=== PATIENT | female | born 1985 ===

== ENCOUNTER 2019-06-07 09:40 | Inpatient (IN) | payer OTHER ==
--- NOTE | 2019-06-07 11:10 | HP ---
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: Alzheimer's, CVA, Dementia, Migraine, Multiple Sclerosis, Peripheral Neuropathy, Parkinson's, Seizure, Syncope, TIA, Vertigo, Other Cardiovascular: No: AFIB, Aneurysm, Aortic Insufficiency, Aortic Stenosis, CAD, CHF, Deep Vein Thrombosis, HTN, Hyperlipdemia, [place], Mitral Insufficiency, Mitral Stenosis, Murmur, Pulmonary Hypertension, Other Pulmonary: No: Asthma, Bronchitis, Cancer, COPD, O2 Dependent, Pneumonia, Previously Intubated, Pulmonary Embolus, Pulmonary Fibrosis, Sleep Apnea, Other Gastrointestinal: No: Ascites, Cancer, Constipation, Crohn's Disease, Diverticulitis, Diverticulosis, Esophageal Varices, Gastritis, GERD, GI Bleed, Hemorrhoids, Hiatal Hernia, Inflamatory Bowel Disease, Irritable Bowel Disease, Pancreatitis, Peptic Ulcer Disease, Ulcerative Colitis, Other Hepatobiliary: No: Cirrhosis, Cholelithiasis, Cholecystitis, Choledocholithiasis , Hepatitis A, Hepatitis B, Hepatitis C, Other Renal/: No: Renal Failure, Renal Inusuff, BPH, Cancer, Hematuria, Hemodialysis , Neurogenic Bladder, Renal Calculi, UTI, Other Reproductive: No: Ectopic , Endometriosis, Fibroids, PID, Polycystic Ovary Syndrome, Postmenopausal, Other ...: 1 Heme/Onc: No: Anemia, B12 Deficiency, Bleeding Disorder, Cancer, Current Chemotherapy, Current Radiation Therapy, Hemochromatosis, Hypercoaguable State, Myeloproliferative Synd, Sickle Cell Disease, Sickle Cell Trait, Thrombocytopenia, Other Infectious Disease: No: AIDS, C-Diff, Herpes Zoster, HIV, MRSA, STD's, Tuberculosis, VREF, Other Psych: No: Addictions, Anxiety, Bipolar, Depression, Panic, Psychosis, Schizophrenia, Other Musculoskeletal: No: Bursitis, Chronic low back pain, Hemiparesis, Hemiplegia, Osteoarthritis, Paraplegia, Other Rheumatology: No: Fibromyalgia, Gout, Lupus, Rheumatoid Arthritis, Sarcoidosis, Vasculitis, Other ENT: No: Allergic Rhinitis, Sinusitis, Other Endocrine: No: [place]'s Disease, Uli's Disease, Diabetes Insipidus, Diabetes Mellitus, Hyperparathyroidism, Hyperthyroidism, Hypothyroidism, Osteopenia, SIADH, Other Dermatology: No: Basal Cell, Cellulitis, Eczema, Melanoma, Psoriasis, Squamous Cell, Other - Past Surgical History Past Surgical History: Yes: None Hx Myomectomy: No Hx Transabdominal Cerclage: No - Smoking History Smoking history: Former smoker Have you smoked in the past 12 months: Yes Aproximately how many cigarettes per day: 0.5 (pack) - Alcohol/Substance Use Hx Alcohol Use: No History of Substance Use: reports: None - Social History History of Recent Travel: No Home Medications - Allergies Allergies/Adverse Reactions: Allergies Allergy/AdvReac Type Severity Reaction Status Date / Time No Known Allergies Allergy Verified 06/07/19 10:57 - Home Medications Home Medications: Ambulatory Orders Ferrous Sulfate [Feosol] 325 mg PO BID 06/07/19 Vitamins (Sjr) - 1 tab PO DAILY 06/07/19 Valacyclovir HCl [Valtrex -] 500 mg PO DAILY 06/07/19 Family Medical History Family History: Unremarkable Review of Systems Findings/Remarks: LOF - Review of Systems Constitutional: reports: No Symptoms Eyes: reports: No Symptoms HENT: reports: No Symptoms Neck: reports: No Symptoms Cardiovascular: reports: No Symptoms Respiratory: reports: No Symptoms Gastrointestinal: reports: No Symptoms Genitourinary: reports: No Symptoms Breasts: reports: No Symptoms Reported Musculoskeletal: reports: No Symptoms Integumentary: reports: No Symptoms Neurological: reports: No Symptoms Endocrine: reports: No Symptoms Hematology/Lymphatic: reports: No Symptoms Psychiatric: reports: No Symptoms Physical Exam - Maternity Vital Signs: as documented by nursing Constitutional: Yes: Well Nourished HENT: Yes: Atraumatic Neck: Yes: Supple Cardiovascular: Yes: Regular Rate and Rhythm Breast(s): Yes: Other - Abdominal Exam/OB Number of Fetuses: Single Presentation: Vertex (bedside sono: cephalic, AMAIRANI 12cm, +FM) Contractions: Yes Regularity: Irritability Intensity: Unaware Monitor Mode: External Heart Rate (range): 145 Category: I Accelerations: Uniform Decelerations: None - Vaginal Exam/OB Vaginal Bleediing: No Speculum Exam: Yes (no lesions and grossly ruptured) Dilatation (cm): 0.5 Effacement (%): 20 Amniotic Membrane Status: Ruptured Nitrazine Test: Positive Amniotic Fluid: Yes: Clear Presentation: Vertex/Position Station: -3 - Physical Exam Musculoskeletal: Yes: WNL Extremities: Yes: WNL Edema: Yes Edema: LLE: Trace, RLE: Trace Integumentary: Yes: WNL Deep Tendon Reflex Grade: Normal +2 ...Motor Strength: WNL Psychiatric: Yes: Alert, Oriented Imaging - Results Ultrasound: Report Reviewed Assessment/Plan 34 y/o P0 @ 39.6 wks, PROM not in active labor, reassuring status. 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 Patient was counseled regarding PROM and induction of labor. All questions answered and informed consent obtained. -Admit -labs -Continuous monitoring -IOL with PO misoprostol protocol
[2019-06-07 11:15] VITALS: BMI 28.5
[2019-06-07] MEDS: ELECTROLYTE-148 SOLN 1,000 ML IV SCH (11:36)
[2019-06-07 11:48] LABS: BASO % 0.2 % (0-2.0); EOS % 0.3 % (0-4.5); HEMATOCRIT 30.8 % (32.4-45.2); HEMOGLOBIN 10.7 GM/dL (10.7-15.3); LYMPH % 14.6 % (8-40); MCH 33.5 pg (25.7-33.7); MCHC 34.6 g/dl (32.0-36.0); MEAN CELL VOLUME 96.8 fl (80-96); MEAN PLT VOLUME 7.5 fl (7.5-11.1); MONO % 4.9 % (3.8-10.2); PLATELET COUNT 302 K/MM3 (134-434); RBC 3.18 M/mm3 (3.60-5.2); RDW 13.5 % (11.6-15.6); WHITE BLOOD COUNT 10.2 K/mm3 (4.0-10.0)
[2019-06-07 11:53] LABS: BLOOD UREA NITROGEN 6.7 mg/dL (7-18); CALCIUM 9.3 mg/dL (8.5-10.1); CREATININE 0.6 mg/dL (0.55-1.3); POTASSIUM 4.2 mmol/L (3.5-5.1)
[2019-06-07 12:12] LABS: INR 0.86 (0.83-1.09); PROTHROMBIN TIME (PATIENT) 10.1 SEC (9.7-13.0)
[2019-06-07 12:14] LABS: ACTIVATED PTT 22.6 SECONDS (25.2-36.5)
[2019-06-07] MEDS: MISOPROSTOL 100 MCG TABLET PO SCH ×3 (12:37→21:15)
[2019-06-08] MEDS ORDERED: BUTORPHANOL TARTRATE 1 MG/ML VIAL ONE ×2 (00:04→01:45)
[2019-06-08] MEDS ORDERED: BUTORPHANOL TARTRATE 2 MG/ML VIAL IVPB ONE ×3 (00:30→02:15)
[2019-06-08] MEDS ORDERED: PROMETHAZINE HCL 25 MG/1 ML VIAL ONE (01:45)
[2019-06-08] MEDS ORDERED: FENTANYL/BUPIVACAINE/NS/PF - PCEA - 50 ML DISP.SYRIN EP ONE ×3 (06:00→13:17)
[2019-06-08] MEDS ORDERED: BUPIVACAINE HCL/PF 2.5 MG/ML - 30 ML VIAL IJ ONE (06:07)
[2019-06-08] MEDS ORDERED: LIDO 2%/EPI 1:200000 PRESRVFRE (20 ML SDVIAL) ONE ×2 (06:07→16:26)
--- NOTE | 2019-06-08 06:11 | PN ---
Ante-Partal Exam - Subjective Subjective: Patient evaluated for pain and progression of induction Vital Signs: Vital Signs Temperature 98.3 F 06/08/19 05:00 Pulse Rate 68 06/08/19 05:00 Respiratory Rate 20 06/08/19 05:00 Blood Pressure 120/76 06/08/19 05:00 O2 Sat by Pulse Oximetry (%) Bleeding: No Headache: No Visual changes: No Right upper quadrant pain: No - Contractions Contractions: Yes Regularity: Regular Intensity: Mod/Strong Monitor Mode: External - Exam during Labor Heart Rate: 145 Variability: Minimal (episodes), Moderate Category: II (reassuring) Monitor Accelerations: Absent Monitor Decelerations: None Exam: Vaginal Dilatation (cm): 3 Effacement (%): 80 Amniotic Membrane Status: Ruptured Amniotic Fluid: Clear Presentation: Vertex Station: -2 - Assessment/Plan Assessment/Plan: 34 y/o G1 @ 40.0wks, IOL due to PROM, FHT cat I to II and reassuring, requesting pain control. EFW by clinical approximation is 3700g. -Epidural is OK -reassess post-epidural
[2019-06-08] MEDS ORDERED: NALOXONE HCL 0.4 MG/ML VIAL IVPUSH PRN (06:43)
[2019-06-08] MEDS ORDERED: FENTANYL/BUPIVACAINE/NS/PF - PCEA - 50 ML DISP.SYRIN EP SCH ×2 (06:45→07:03)
[2019-06-08] MEDS: ELECTROLYTE-148 SOLN 1,000 ML IV SCH ×2 (07:18→12:41)
--- NOTE | 2019-06-08 08:12 | PN ---
Ante-Partal Exam - Subjective Subjective: Patient is feeling more comfortable. Patient would like time to make decision. Vital Signs: Vital Signs Temperature 99.4 F 06/08/19 08:00 Pulse Rate 79 06/08/19 08:00 Respiratory Rate 18 06/08/19 08:00 Blood Pressure 110/50 L 06/08/19 08:00 O2 Sat by Pulse Oximetry (%) 97 06/08/19 08:00 Bleeding: No Headache: No Visual changes: No Right upper quadrant pain: No - Contractions Contractions: Yes Regularity: Regular Monitor Mode: External - Exam during Labor Heart Rate: 145 Variability: Moderate Category: I Monitor Accelerations: Present Monitor Decelerations: None Exam: Vaginal Dilatation (cm): 4 Effacement (%): 90 Presentation: Vertex Station: -1 Remarks: asynclitic - Assessment/Plan Assessment/Plan: Patient is feeling comfortable and FHT reactive now. Patient would like time to decide mode of delivery as she is undecided regarding CD. Patient was counseled regarding CD and induction/vaginal including but not limited to their risks and complications. All questions answered. -Continue current management -reassess accordingly
[2019-06-08] MEDS ORDERED: OXYTOCIN 30 UNITS in 0.9% NS 30 UNIT/500 ML INFUS.BAG IVPB ONE (09:53)
[2019-06-08] MEDS ORDERED: OXYTOCIN 30 UNITS in 0.9% NS 30 UNIT/500 ML INFUS.BAG IVPB SCH (10:00)
--- NOTE | 2019-06-08 10:10 | PN ---
Ante-Partal Exam - Subjective Subjective: Patient feels more comfortable. She has decided to proceed with trial of labor as she is feeling comfortable Vital Signs: Vital Signs Temperature 99.8 F H 06/08/19 09:00 Pulse Rate 98 H 06/08/19 09:00 Respiratory Rate 18 06/08/19 09:00 Blood Pressure 108/69 06/08/19 09:00 O2 Sat by Pulse Oximetry (%) 96 06/08/19 09:00 Bleeding: No Headache: No Visual changes: No Right upper quadrant pain: No - Contractions Contractions: Yes Regularity: Irregular Intensity: Unaware Monitor Mode: External - Exam during Labor Heart Rate: 140 Variability: Moderate Category: II Monitor Accelerations: Present Monitor Decelerations: Early Exam: Vaginal Dilatation (cm): 4.5 Effacement (%): 80 Meconium Staining: Light Station: -1 (asynclitic) - Intrapartum Hemorrhage Risk Medium Risk Factors: Chorioamniomitis Risk Score: 1 Risk Level: Medium Risk - Assessment/Plan Assessment/Plan: 34 y/o P0 @ 40.0wks, IOL due to prolonged ROM, borderline febrile, reassuring heart rate tracing with episodic variables, S/P epidural and comfortable. Suspected impending chorioamnionitis. Patient has decided to proceed with trial of labor after weighing her options. All questions answered. -Unasyn -Start pitocin -Continuous monitoring
[2019-06-08] MEDS: AMPICILLIN NA/SULBACTAM NA 3 GM in SODIUM CHLORIDE 100 ML IVPB SCH ×3 (10:30→21:15)
--- NOTE | 2019-06-08 12:31 | PN ---
Ante-Partal Exam - Subjective Subjective: Patient feels comfortable Vital Signs: Vital Signs Temperature 99.0 F 06/08/19 11:00 Pulse Rate 83 06/08/19 11:30 Respiratory Rate 18 06/08/19 11:30 Blood Pressure 102/54 L 06/08/19 11:30 O2 Sat by Pulse Oximetry (%) 95 06/08/19 11:30 Bleeding: No Headache: No Visual changes: No Right upper quadrant pain: No - Contractions Contractions: Yes Regularity: Regular Intensity: Unaware Monitor Mode: External - Exam during Labor Heart Rate: 145 Variability: Minimal, Moderate Category: I Monitor Accelerations: Present Monitor Decelerations: None Exam: Vaginal (Asynclitic and internal) Dilatation (cm): 5 Effacement (%): 90 Amniotic Membrane Status: Ruptured Presentation: Vertex Station: -1 - Assessment/Plan Assessment/Plan: 34 y/o G1 @ 40.0wks, augmentation of labor for PROM, suspected chorio on IV abx , IUP in place. Patient counseled regarding plan of action and she expressed understanding and agreement -Continue IV abx -Titrate pit to adequate contractions -Re-evaluate accordingly
[2019-06-08] MEDS ORDERED: ACETAMINOPHEN INJECTION 100 ML IVPB ONE (14:11)
[2019-06-08] MEDS ORDERED: ACETAMINOPHEN 1000 MG/100 ML VIAL (NON FORMULARY) IVPB ONE (14:14)
[2019-06-08] MEDS ORDERED: KETOROLAC TROMETHAMINE 30 MG/1 ML VIAL ONE (16:21)
[2019-06-08] MEDS ORDERED: PHENYLEPHRINE HCL 10 MG/1 ML SINGLE DOSE VIAL ONE (16:21)
[2019-06-08] MEDS ORDERED: ceFAZolin SODIUM 1 GM VIAL ONE (16:21)
[2019-06-08] MEDS ORDERED: OXYTOCIN 20 UNITS in 0.9% NS 20 UNIT/1,000 ML INFUS.BAG IV ONE ×2 (16:26→18:29)
[2019-06-08] MEDS ORDERED: CLINDAMYCIN 900 MG PREMIX IVPB 900 MG/50 ML BAG IVPB ONE (16:27)
[2019-06-08] MEDS ORDERED: CLINDAMYCIN PHOSPHATE 600 MG/4 ML VIAL ONE (16:28)
--- NOTE | 2019-06-08 16:54 | PN ---
Ante-Partal Exam - Subjective Subjective: Patient is comfortable with epidural and evaluated for progression Vital Signs: Vital Signs Temperature 99.4 F 06/08/19 16:00 Pulse Rate 86 06/08/19 16:00 Respiratory Rate 20 06/08/19 16:00 Blood Pressure 103/46 L 06/08/19 16:00 O2 Sat by Pulse Oximetry (%) 96 06/08/19 16:00 Bleeding: No Headache: No Visual changes: No Right upper quadrant pain: No - Contractions Contractions: Yes Regularity: Regular Intensity: Unaware Monitor Mode: External - Exam during Labor Heart Rate: 130 Variability: Moderate Category: I Monitor Accelerations: Present Monitor Decelerations: None Exam: Vaginal Dilatation (cm): 5 Effacement (%): 90 Amniotic Membrane Status: Ruptured Station: -1 - Assessment/Plan Assessment/Plan: 34 y/o G1 @ 40.0wks, IOL due to prolonged ruptured membranes, FHT cat I, arrest of dilatation, chorioamnionitis. Patient counseled regarding indication for CD and all questions answered -Proceed with surgery -Clindamycin dose -Continue antibiotics for 24hrs post-op
[2019-06-08] MEDS ORDERED: oxyCODONE HCL 5 MG TABLET PO PRN (17:36)
[2019-06-08] MEDS ORDERED: METHYLERGONOVINE MALEATE 0.2 MG/1 ML AMP IM ONE (17:36)
[2019-06-08] MEDS ORDERED: OXYTOCIN 20 UNITS in 0.9% NS 20 UNIT/1,000 ML INFUS.BAG IV SCH (17:45)
--- NOTE | 2019-06-08 17:58 | OP ---
Operative Note - Note: Operative Date: 06/08/19 (Dic# [id number]) Pre-Operative Diagnosis: G1 @ 40.0wks, arrest of dilatation, chorioamnionitis Operation: PLTCS Findings: see dictation Post-Operative Diagnosis: Same as Pre-op Surgeon: Elder Wood Cartography/Mapping Technician: Jsoe Luis Alfredo Specimens Removed: placenta Estimated Blood Loss (mls): 800 Operative Report Dictated: Yes
[2019-06-08] MEDS ORDERED: IBUPROFEN 800 MG/8 ML IJ IVPB ONE (18:35)
[2019-06-08] MEDS: IBUPROFEN 800 MG/8 ML IJ IVPB PRN (18:38)
[2019-06-08] MEDS ORDERED: AMPICILLIN NA/SULBACTAM NA 1.5 GM in SODIUM CHLORIDE 100 ML IVPB SCH (21:00)
[2019-06-08] MEDS: METHYLERGONOVINE MALEATE 0.2 MG TABLET (FP) PO SCH (21:14)
[2019-06-08] MEDS: ACETAMINOPHEN 325 MG TABLET (FP) PO PRN (21:27)
[2019-06-08] MEDS: MISOPROSTOL 100 MCG TABLET PO SCH (23:25)
[2019-06-09] MEDS: METHYLERGONOVINE MALEATE 0.2 MG TABLET (FP) PO SCH ×4 (00:59→15:04)
[2019-06-09] MEDS: AMPICILLIN NA/SULBACTAM NA 3 GM in SODIUM CHLORIDE 100 ML IVPB SCH ×3 (03:21→15:05)
[2019-06-09] MEDS: IBUPROFEN 800 MG/8 ML IJ IVPB PRN (04:12)
[2019-06-09] MEDS: MISOPROSTOL 100 MCG TABLET PO SCH (06:21)
[2019-06-09 06:36] LABS: BASO % 0.5 % (0-2.0); EOS % 0.2 % (0-4.5); HEMOGLOBIN 8.9 GM/dL (10.7-15.3); LYMPH % 11.8 % (8-40); MCH 32.7 pg (25.7-33.7); MCHC 32.9 g/dl (32.0-36.0); MEAN CELL VOLUME 99.3 fl (80-96); MEAN PLT VOLUME 7.5 fl (7.5-11.1); MONO % 3.4 % (3.8-10.2); NEUT % 84.1 % (42.8-82.8); PLATELET COUNT 229 K/MM3 (134-434); RBC 2.71 M/mm3 (3.60-5.2); RDW 13.7 % (11.6-15.6); WHITE BLOOD COUNT 11.7 K/mm3 (4.0-10.0)
[2019-06-09] MEDS: ACETAMINOPHEN 325 MG TABLET (FP) PO PRN ×3 (08:03→16:48)
--- NOTE | 2019-06-09 08:39 | PN ---
Post Progress Note - Subjective Subjective: Not yet ambulating and townsend in place, pain controlled and in NICU in stable condition following delivery complicated by chorio. Post Day: 1 Type of Delivery: Primary C/S Vital Signs: Vital Signs Temperature 98.4 F 06/09/19 05:41 Pulse Rate 81 06/09/19 05:41 Respiratory Rate 20 06/09/19 05:41 Blood Pressure 108/70 06/09/19 05:41 O2 Sat by Pulse Oximetry (%) 98 06/08/19 18:45 Breast Exam: Yes: Other (deferred) Uterus: Yes: Fundus Firm Incision: Yes: Dressing dry and intact, Bowler intact Abdomen/GI: Yes: Abdomen soft, Tender (appropriately) Lochia, amount: Small Extremities: Yes: Calves non-tender Perineum: Yes: Intact Activity: Other (awaiting townsend removal) - Labs Labs: CBC WBC 11.7 K/mm3 (4.0-10.0) H 06/09/19 06:21 RBC 2.71 M/mm3 (3.60-5.2) L 06/09/19 06:21 Hgb 8.9 GM/dL (10.7-15.3) L 06/09/19 06:21 Hct 27.0 % (32.4-45.2) L 06/09/19 06:21 MCV 99.3 fl (80-96) H 06/09/19 06:21 MCH 32.7 pg (25.7-33.7) 06/09/19 06:21 MCHC 32.9 g/dl (32.0-36.0) 06/09/19 06:21 RDW 13.7 % (11.6-15.6) 06/09/19 06:21 Plt Count 229 K/MM3 (134-434) D 06/09/19 06:21 MPV 7.5 fl (7.5-11.1) 06/09/19 06:21 Absolute Neuts (auto) 9.8 K/mm3 (1.5-8.0) H 06/09/19 06:21 Neutrophils % 84.1 % (42.8-82.8) H 06/09/19 06:21 Lymphocytes % 11.8 % (8-40) 06/09/19 06:21 Monocytes % 3.4 % (3.8-10.2) L 06/09/19 06:21 Eosinophils % 0.2 % (0-4.5) 06/09/19 06:21 Basophils % 0.5 % (0-2.0) 06/09/19 06:21 Nucleated RBC % 0 % (0-0) 06/09/19 06:21 Assessment/Plan POD # 1 in stable condition S/P CD due to failure to progress and chorio. Patient undergoing 24hr abx PP. Infant in NICU under observation. -Encourage ambulation -continue Unasyn -Inpatient care
[2019-06-09] MEDS ORDERED: ACETAMINOPHEN 1000 MG/100 ML VIAL (NON FORMULARY) IVPB PRN ×2 (08:40→08:43)
[2019-06-09] MEDS: IBUPROFEN 600 MG TABLET (FP) PO PRN ×2 (12:07→16:48)
[2019-06-09] MEDS: SIMETHICONE 80 MG TAB.CHEW (FP) PO PRN ×2 (16:48→20:47)
[2019-06-09] MEDS ORDERED: BISACODYL 10 MG SUPP.RECT RC PRN (17:37)
[2019-06-10] MEDS: IBUPROFEN 600 MG TABLET (FP) PO PRN ×3 (04:13→20:13)
[2019-06-10] MEDS: ACETAMINOPHEN 325 MG TABLET (FP) PO PRN ×4 (04:14→20:13)
--- NOTE | 2019-06-10 08:07 | PN ---
Post Progress Note - Subjective Subjective: No events overnight. Pain controlled. No fevers/chills. Ambulating. Voiding freely Post Day: 2 Type of Delivery: Primary C/S Vital Signs: Vital Signs Temperature 98.2 F 06/09/19 22:00 Pulse Rate 64 06/09/19 22:00 Respiratory Rate 18 06/09/19 22:00 Blood Pressure 103/59 L 06/09/19 22:00 O2 Sat by Pulse Oximetry (%) 98 06/08/19 18:45 Uterus: Yes: Fundus @ umbilicus Incision: Yes: Dressing dry and intact Abdomen/GI: Yes: Abdomen soft, Passing flatus, Tolerating PO Lochia: Yes: Rubra Lochia, amount: Small Extremities: Yes: Calves non-tender Perineum: Yes: Intact Activity: Ambulating - Labs Labs: CBC WBC 11.7 K/mm3 (4.0-10.0) H 06/09/19 06:21 RBC 2.71 M/mm3 (3.60-5.2) L 06/09/19 06:21 Hgb 8.9 GM/dL (10.7-15.3) L 06/09/19 06:21 Hct 27.0 % (32.4-45.2) L 06/09/19 06:21 MCV 99.3 fl (80-96) H 06/09/19 06:21 MCH 32.7 pg (25.7-33.7) 06/09/19 06:21 MCHC 32.9 g/dl (32.0-36.0) 06/09/19 06:21 RDW 13.7 % (11.6-15.6) 06/09/19 06:21 Plt Count 229 K/MM3 (134-434) D 06/09/19 06:21 MPV 7.5 fl (7.5-11.1) 06/09/19 06:21 Absolute Neuts (auto) 9.8 K/mm3 (1.5-8.0) H 06/09/19 06:21 Neutrophils % 84.1 % (42.8-82.8) H 06/09/19 06:21 Lymphocytes % 11.8 % (8-40) 06/09/19 06:21 Monocytes % 3.4 % (3.8-10.2) L 06/09/19 06:21 Eosinophils % 0.2 % (0-4.5) 06/09/19 06:21 Basophils % 0.5 % (0-2.0) 06/09/19 06:21 Nucleated RBC % 0 % (0-0) 06/09/19 06:21 Assessment/Plan 34yo s/p PLTCS c/b chorio, POD#2 Routine PP care s/p Abx x 24 hours, afebrile Labs reviewed OOB, ambulate Anticipate d/c to home POD#3 (baby in NICU). Crystal Garcia MD
[2019-06-11] MEDS: ACETAMINOPHEN 325 MG TABLET (FP) PO PRN ×3 (00:03→11:02)
[2019-06-11] MEDS: IBUPROFEN 600 MG TABLET (FP) PO PRN ×3 (00:04→11:02)
[2019-06-11] MEDS: SIMETHICONE 80 MG TAB.CHEW (FP) PO PRN ×2 (05:39→11:03)
--- NOTE | 2019-06-11 06:52 | DS ---
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 No: CVA Tenderness - Left, CVA Tenderness - Right ....Post : Yes: Uterus firm, Uterus non-tender, Moderate lochia rubra Breast(s): Yes: WNL (not engorged , breast & bottle feeding) Musculoskeletal: Yes: WNL Extremities: Yes: WNL. No: Calf Tenderness Edema: LLE: 1+, RLE: 1+ Wound/Incision: Yes: Clean/Dry, Well Approximated, Marcus Intact, Open to air. 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 Discharge Summary Problems reviewed: Yes Reason For Visit: LABOR Procedures: Principal: primary LFTC?Section Hospital Course: uneventful Plan of Treatment: as directed Condition: Stable - Instructions Diet, Activity, Other Instructions: Return to regular diet as tolerated, Regular activity once cleared by provider. Take medications as prescribed. Follow up with provider within a week. RTC 1 week for marcus removal , call for appt [phone] Referrals: Thelma Shaver MD [Staff Physician] - Elder Wood MD [Staff Physician] - Disposition: HOME - Home Medications Comprehensive Discharge Medication List: Ambulatory Orders Ferrous Sulfate [Feosol] 325 mg PO BID 06/07/19 Vitamins (Sjr) - 1 tab PO DAILY 06/07/19 Valacyclovir HCl [Valtrex -] 500 mg PO DAILY 06/07/19 Acetaminophen [Tylenol] 650 mg PO Q6H PRN #30 capsule MDD 5 06/08/19 Ibuprofen 600 mg PO Q6H PRN #30 tablet 06/08/19 Oxycodone HCl 5 mg PO Q6H PRN 3 Days #12 tablet MDD 5 06/08/19
[2019-06-11 08:11] LABS: BASO % 0.4 % (0-2.0); EOS % 1.3 % (0-4.5); HEMATOCRIT 22.8 % (32.4-45.2); HEMOGLOBIN 7.8 GM/dL (10.7-15.3); LYMPH % 26.4 % (8-40); MCH 33.8 pg (25.7-33.7); MCHC 34.2 g/dl (32.0-36.0); MEAN CELL VOLUME 98.9 fl (80-96); MEAN PLT VOLUME 7.5 fl (7.5-11.1); MONO % 4.9 % (3.8-10.2); PLATELET COUNT 236 K/MM3 (134-434); RDW 14.1 % (11.6-15.6)
[2019-06-11 08:41] VITALS: BP 116/69; PULSE 64; TEMP 99.2
--- NOTE | 2019-06-12 16:07 | PATH ---
Surgical Pathology Report Patient Name: LUIS FELIPE SCHILLING [facility]. Rec. 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 Electronically Signed Abby Bunch M.D. Gross Description The specimen is received fresh labeled placenta and is a 382 gram, 18.5 x 14.0 x 2.3 cm. placenta with attached membranes and umbilical cord. The attached membranes are orozco, translucent with focal opacities and insert marginally. The umbilical cord measures 12 cm. in length and averages 1 cm. in diameter. The cord inserts eccentrically, 1 cm. to the nearest margin. No true knots or strictures are identified. Cut surface of the umbilical cord reveals 3 vessels. The surface is veronica-blue with minimal fibrin deposition and appropriate caliber vessels. The maternal surface is red-brown with focal defects. Sectioning reveals red-brown, spongy parenchyma. No lesions are identified. Loan Manager sections are submitted in three cassettes as follows: 1- membrane rolls and umbilical cord; 2-3- full thickness sections of placenta. 06/10/2019 [facility]/10/2019
[2019-06-13 09:52] LABS: POC NITRAZINE POS
--- NOTE | 2019-06-13 19:00 | OP ---
DATE OF OPERATION: 06/08/2019 PREOPERATIVE DIAGNOSIS: A 34-year-old 1 at 40 weeks' gestation. Induction of labor due to premature rupture of membranes, arrest of dilatation, chorioamnionitis. POSTOPERATIVE DIAGNOSIS: A 34-year-old 1 at 40 weeks' gestation. Induction of labor due to premature rupture of membranes, arrest of dilatation, chorioamnionitis. PROCEDURE: Primary low transverse section. ATTENDING: Magdiel Madrigal MD RN UNIT MANAGER: MARA Caruso ANESTHESIA: Spinal. ESTIMATED BLOOD LOSS: 800. INTRAVENOUS FLUIDS: Per anesthesia. URINE: Clear. FINDINGS: Normal anterior abdominal wall anatomy. The uterus was effaced, infant not engaged, cephalic presentation, live viable male. Uterus and bilateral tubes and ovaries consistent with normal anatomy. Bladder dome and rectus muscle fascial interface were intact. DESCRIPTION OF PROCEDURE: Patient was taken to the operating room where anesthesia was found to be adequate. She was then prepped and draped in a normal sterile fashion. Appropriate time-out took place. Pfannenstiel skin incision was made with a scalpel and carried to underlying fascia with the Bovie. The fascia was incised in the midline. Incision extended laterally with sharp dissection. The underlying rectus muscles were dissected off sharply and bluntly. The rectus muscles were bluntly in the midline superior and the peritoneum was entered sharply. The peritoneum incision was extended bluntly. Bladder blade was placed in the lower uterine segment and was noted to be effaced. Transverse lower uterine segment incision was made with a scalpel and extended laterally with blunt dissection. The infant was in cephalic presentation at delivered through the cervical incision with mild fundal pressure by the provider. Umbilical cord was clamped and cut and infant handed off to the NICU staff. Sample for gases and blood were obtained. Placenta was delivered manually and intact. Placental cultures were obtained from maternal and side. Placenta sent to Pathology. The uterus was exteriorized through the surgical incision and the intrauterine cavity cleared of all clots and debris. The lower uterine segment incision was reapproximated with 1-0 Polysorb running locked suture. Excellent structural reapproximation achieved, and 1 figure of eight of the same suture required in the midline to control mild oozing. Excellent hemostasis noted. Uterus was internalized to the pelvic cavity, and gutters were cleared of all clots and debris. Inspection of the lower uterine segment incision was again noted to be hemostatic. Bladder dome and rectus muscle fascia interface examined and intact. Rectus muscles were reapproximated manually. The fascial incision was re-approximated with 0 running, nonlocked Polysorb suture. Excellent structural reapproximation achieved and confirmed by digital palpation by the surgeon. Subcutaneous tissues were copiously irrigated and bleeders neutralized with Bovie cautery. The skin incision was reapproximated with surgical ziyad. Instrument count was reported as correct x2 by the staff. Patient in stable condition, 0.2 mcg of Methergine was administered IM intraperitoneally for mild atony. MAGDIEL MADRIGAL MD [id number]
== END 2019-06-11 12:30 | disposition home or self-care (01) | DRG 786 ==
LOC: JLDR 09:40 → J3W 06-08 20:30
PROVIDERS: ADMIT Student in an Organized Health Care Education/Training Program; ATTEND Student in an Organized Health Care Education/Training Program
PROC: 10D00Z1 Extraction of Products of Conception, Low, Open Approach (ICD-10-PCS; principal; 2019-06-08)
DX: O62.0 Primary inadequate contractions (principal); O41.1230 Chorioamnionitis, third trimester, not applicable or unspecified; O42.92 Full-term premature rupture of membranes, unspecified as to length of time between rupture and onset of labor; Z3A.40 40 weeks gestation of pregnancy; Z37.0 Single live birth
CPT/HCPCS: 36415; 36600; 80048; 82803; 83986-QW; 85025; 85610; 85730; 86593; 86850; 86900; 86901; 87070; 87186; 87205; J0131